=== PATIENT | male | born 1945 | race Caucasian/White ===

== ENCOUNTER 2018-11-03 09:10 | Outpatient (CLI) | payer OTHER ==
[~2018-11-03 09:10] MED LIST: LOSARTAN POTASS50 MG PO; RELAFEN PO; TAMS0.4C PO
== END 2018-11-03 09:15 | disposition home or self-care (01) ==
LOC: LAB 09:10
DX: N40.1 Benign prostatic hyperplasia with lower urinary tract symptoms (principal)

== ENCOUNTER 2019-01-11 09:33 | Outpatient (CLI) | payer OTHER | END 2019-01-11 10:00 | disposition home or self-care (01) | LOC: RAD 09:33 | DX: M51.37 Other intervertebral disc degeneration, lumbosacral region (principal); M47.817 Spondylosis without myelopathy or radiculopathy, lumbosacral region; M16.0 Bilateral primary osteoarthritis of hip; M50.30 Other cervical disc degeneration, unspecified cervical region; M51.34 Other intervertebral disc degeneration, thoracic region ==

== ENCOUNTER 2019-01-13 09:48 | Outpatient (CLI) | payer OTHER | END 2019-01-13 12:47 | disposition home or self-care (01) | LOC: MRI 09:48 | DX: M54.17 Radiculopathy, lumbosacral region (principal) | CPT/HCPCS: 72148 ==

== ENCOUNTER 2019-01-27 08:28 | Outpatient (CLI) | payer OTHER | END 2019-01-27 08:34 | disposition home or self-care (01) | LOC: LAB 08:28 | DX: E78.49 Other hyperlipidemia (principal); E53.1 Pyridoxine deficiency; D51.3 Other dietary vitamin B12 deficiency anemia; E11.40 Type 2 diabetes mellitus with diabetic neuropathy, unspecified; E03.8 Other specified hypothyroidism ==

== ENCOUNTER 2023-11-24 08:43 | Outpatient (CLI) | payer OTHER | END 2023-11-24 08:49 | disposition home or self-care (01) | LOC: SONOGRAMA 08:43 | PROVIDERS: ATTEND Internal Medicine Cardiovascular Disease | DX: R10.9 Unspecified abdominal pain (principal) ==